=== PATIENT | female | born 1960 | race Caucasian/White ===

== ENCOUNTER 2016-11-16 01:40 | Observation (INO) | payer BC ==
[~2016-11-16] VITALS: Ht 160 cm; Wt 86.2 kg
[2016-11-16] VITALS (13 sets, daily range): BP systolic 121–208; BP diastolic 51–110
--- NOTE | ~2016-11-16 | 2DMMODE ---
[facility] [address] [place] [address] 2 D/M-MODE ECHOCARDIOGRAM Name: MARKUS MORRIS DEBRA Room #: 203-P ADM IN M.R.#: [id number] Admission: 11/16/16 Attend Phys: Clarice Perdomo Discharge: Date of : 60 Date of Service: 11/16/16 1536 Report #: [id number] THIS REPORT FOR: //name// APPROVED REPORT Study performed: 11/16/2016 13:21:52 EXAM: Comprehensive 2D, Doppler, and color-flow Echocardiogram Patient Location: Echo lab Status: routine BSA: 1.84 HR: 75 bpm BP: 172/86 mmHg Other Information Study Quality: Good Indications CVA/TIA Hx HTN, DM, HLP 2D Dimensions RVDd: 28.74 mm LVEF(%): 73.71 (>50%) IVSd: 14.53 (7-11mm) LVOT Diam: 20.19 (18-24mm) LVDd: 39.89 mm PWd: 11.48 (7-11mm) Ascending Ao: 31.62 (22-36mm) LVDs: 23.08 (25-40mm) Aortic Root: 28.31 mm Coyne's LVEF: 73.71 % Volumes Left Atrial Volume (Systole) Single Plane 4CH: 47.64 mL Single Plane 2CH: 43.53 mL LA ESV Index: 27.00 mL/m2 Aortic Valve AoV Peak Enio.: 1.58 m/s AO Peak Gr.: 9.92 mmHg LVOT Max P.56 mmHg LVOT Max V: 1.07 m/s DEAN Vmax: 2.17 cm2 Mitral Valve E/A Ratio: 0.8 MV Decel. Time: 298.[address] [facility] [place] [address] 2 D/M-MODE ECHOCARDIOGRAM Name: MARKUS MORRIS [place] Room #: 203-P ADM IN M.R.#: [id number] Admission: 11/16/16 Attend Phys: Clarice Perdomo Discharge: Date of : 60 Date of Service: 11/16/16 1536 Report #: [id number] MV E Max Enio.: 0.71 m/s MV A Enio.: 0.87 m/s MV PHT: 86.64 ms IVRT: 87.66 ms Pulmonary Valve PV Peak Enio.: 0.97 m/s PV Peak Gr.: 3.79 mmHg Pulmonary Vein P Vein S: 0.61 m/s P Vein A: 0.29 m/s P Vein D: 0.32 m/s P Vein A Dur.: 113.0 msec P Vein S/D Ratio: 1.91 Tricuspid Valve TR Peak Enio.: 2.41 m/s RAP Estimate: 5.00 mmHg TR Peak Gr.: 23.31 mmHg PA Pressure: 28.00 mmHg Left Ventricle The left ventricle is normal size. Borderline LVH is present. The left ventricular systolic function is normal. The left ventricular ejection fraction is within the normal range. LVEF is 65%. Grade I - abnormal relaxation pattern. Right Ventricle The right ventricle is normal size. The right ventricular systolic function is normal. Atria The left atrium size is normal. Injection of bubbles documented no interatrial shunt. The right atrium size is normal. Aortic Valve Aortic valve leaflets are thickened. No aortic regurgitation is present. There is no aortic valvular stenosis. Mitral Valve The mitral valve is normal in structure. There is no mitral valve regurgitation noted. No evidence of mitral valve stenosis. Tricuspid Valve The tricuspid valve is normal in structure. There is trace tricuspid regurgitation. The right atrial pressure is estimated at 5 mmHg. There is no pulmonary hypertension with an estimated PAP of [address] [facility] [address] [place] [address] 2 D/M-MODE ECHOCARDIOGRAM Name: MARKUS MORRIS DEBRA Room #: 203-P ADM IN M.R.#: [id number] Admission: 11/16/16 Attend Phys: Clarice Perdomo Discharge: Date of : 60 Date of Service: 11/16/16 1536 Report #: [id number] Pulmonic Valve The pulmonary valve is normal in structure. Trace pulmonic regurgitation. Great Vessels The aortic root is normal in size. The ascending aorta is normal in size. IVC is normal in size and collapses >50% with inspiration. Pericardium There is no pericardial effusion. <Conclusion> The left ventricle is normal size. The left ventricular systolic function is normal. Grade I - abnormal relaxation pattern. The right ventricle is normal size. The left atrium size is normal. The right atrium size is normal. Injection of bubbles documented no interatrial shunt. There is no aortic valvular stenosis. The mitral valve is normal in structure. <ELECTRONICALLY SIGNED> By: Thad Hawkins MD 11/16/16 1536 1536 1536 Thad Hawkins MD /INF
--- NOTE | ~2016-11-16 | EKG ---
[place] [address] [facility] [place] [address] ELECTROCARDIOGRAM REPORT Name: MARKUS MORRIS Room #: 247-P [facility]#: [id number] Admission: 11/16/16 Attend Phys: Derek Grimm MD Discharge: Date of : 60 Report #: [id number] THIS REPORT FOR: //name// [facility] ED Test Date: 2016-11-16 Test Time: 01:45:44 Pat Name: MARKUS MORRIS Department: Room: [facility] Gender: F [employer]ographic Process Worker: RERE : 1960 Requested By: Aguila Hassan Order Number: [id number] MD: Jose Oliver Measurements Intervals [place] Rate: 66 P: 19 WY: 187 QRS: 13 QRSD: 90 T: 40 QT: 401 QTc: 421 Interpretive Statements Sinus rhythm Normal tracing No previous ECG available for comparison Electronically Signed On 11-16-2016 10:53:24 CDT by Jose Oliver [email or web address] <ELECTRONICALLY SIGNED> By: Jose Oliver MD, [facility] 11/16/16 1053 0145 0145 Jose Oliver MD, FACC /EPI
[~2016-11-16 01:40] MED LIST: AMARYL4 MG; INVOKANA300 MG PO; LISINOPRIL5 MG PO; LOPERAMIDE 2 MG2 M1 PO; PROGESTERONE100 MG TOP; ZOFRAN4 MG PO
[2016-11-16] MEDS ORDERED: TRULICITY0.75 MG/0. SQ (01:52)
[2016-11-16 02:36] LABS: HEMATOCRIT 44.7 % (37.0-47.0); HEMOGLOBIN 14.9 gm/dL (12.0-15.0); MANUAL DIFF NO; MCV 92.2 fL (80.0-100.0); RBC 4.85 mil/uL (4.20-5.00); WBC 8.3 thou/uL (4.0-11.0)
[2016-11-16 02:37] LABS: URINE COLOR YELLOW; URINE SPECIFIC GRAVITY 1.015 (1.003-1.035)
[2016-11-16 02:37] LABS: ABSOLUTE NEUTROPHILS 4.3 thou/uL (1.4-8.2); BASOPHILS 0.7 % (0.0-2.0); EOSINOPHILS 2.1 % (0.0-3.0); LYMPHOCYTES 39.5 % (24.0-44.0); MCH 30.8 pg (26.0-34.0); MCHC 33.4 % (28.0-37.0); MONOCYTES 6.6 % (1.0-8.0); PLATELET COUNT 183 thou/uL (150-400); POLYS 51.1 % (36.0-66.0)
[2016-11-16 02:38] LABS: URINE BILIRUBIN NEGATIVE (Negative); URINE BLOOD NEGATIVE (Negative); URINE GLUCOSE-RANDOM* 3+ (Negative); URINE KETONES TRACE (Negative); URINE NITRITE NEGATIVE (Negative); URINE PROTEIN (DIPSTICK) NEGATIVE (Negative); URINE UROBILINOGEN 0.2 E.U./dl (0.2-1.0)
[2016-11-16 02:43] LABS: ALBUMIN 4.3 g/dL (3.4-5.0); ALKALINE PHOSPHATASE 64 U/L (46-116); ANION GAP 10 mmol/L (7-16); BUN 22 mg/dL (7-18); CALCIUM 9.6 mg/dL (8.5-10.1); CHLORIDE 103 mmol/L (98-107); CO2 28 mmol/L (21-32); CREATININE 0.9 mg/dL (0.6-1.0); GLUCOSE 148 mg/dL (74-106); MAGNESIUM 2.3 mg/dL (1.8-2.4); POTASSIUM 4.1 mmol/L (3.5-5.1); SGOT 16 U/L (15-37); SGPT 24 U/L (30-65); SODIUM 141 mmol/L (136-145); TOTAL BILIRUBIN 0.5 mg/dL (<0.1-1.0); TOTAL PROTEIN 7.7 g/dL (6.4-8.2); TROPONIN-I < 0.04 ng/mL (<0.04-0.07)
[2016-11-16 02:43] LABS: AMP/METHAMP Negative (Negative); BARBITURATES Negative (Negative); BENZODIAZEPINES Negative (Negative); COCAINE Negative (Negative); METHADONE Negative (Negative); OPIATES Negative (Negative); PCP Negative (Negative); THC Negative (Negative)
[2016-11-16 02:44] LABS: NT-PRO BRAIN NAT PEPTIDE 37 pg/mL (<300)
[2016-11-16 15:38] LABS: TSH 6.836 uIU/mL (0.358-3.740)
[2016-11-16 16:04] LABS: FOLIC ACID 26.8 ng/mL (8.6-58.9)
[2016-11-17 03:39] LABS: ABSOLUTE NEUTROPHILS 5.1 thou/uL (1.4-8.2); BASOPHILS 0.7 % (0.0-2.0); EOSINOPHILS 3.2 % (0.0-3.0); HEMATOCRIT 40.2 % (37.0-47.0); HEMOGLOBIN 13.6 gm/dL (12.0-15.0); LYMPHOCYTES 31.6 % (24.0-44.0); MCH 31.1 pg (26.0-34.0); MCHC 33.7 g/dL (28.0-37.0); MCV 92.1 fL (80.0-100.0); MONOCYTES 6.6 % (1.0-8.0); PLATELET COUNT 175 thou/uL (150-400); POLYS 57.9 % (36.0-66.0); RBC 4.37 mil/uL (4.20-5.00); RDW 13.2 % (10.5-14.5); WBC 8.8 thou/uL (4.0-11.0)
[2016-11-17 03:52] LABS: MANUAL DIFF NO
[2016-11-17 04:00] VITALS: BP 130/67
[2016-11-17 04:04] LABS: ANION GAP 12 mmol/L (7-16); BUN 18 mg/dL (7-18); CALCIUM 8.9 mg/dL (8.5-10.1); CHLORIDE 103 mmol/L (98-107); CHOLESTEROL 203 mg/dL (<200); CO2 24 mmol/L (21-32); CREATININE 0.7 mg/dL (0.6-1.0); GLUCOSE 121 mg/dL (74-106); HDL CHOLESTEROL 49 mg/dL (>40); LDL CHOLESTEROL 109 mg/dL (<100); MAGNESIUM 1.9 mg/dL (1.8-2.4); POTASSIUM 3.8 mmol/L (3.5-5.1); SODIUM 139 mmol/L (136-145); TC:HDL 4.1 Ratio (Not establshd); TRIGLYCERIDE 229 mg/dL (<150); VLDL 46 mg/dL (<40)
[2016-11-17 04:06] LABS: SERUM ASSESSMENT Clear
[2016-11-17 05:08] LABS: GLYCOHEMOGLOBIN (HGB A1C) 6.5 % (4.8-5.6)
[2016-11-17 07:53] VITALS: BP 143/79
[2016-11-17] MEDS ORDERED: ECOTRIN325 MG PO (09:19)
[2016-11-17] MEDS ORDERED: LISINOPRIL5 MG PO (09:19)
[2016-11-17] MEDS ORDERED: LIPITOR 20 MG T20 M1 PO (09:23)
[2016-11-17 10:04] VITALS: BP 143/79
[2016-11-17 10:51] VITALS: BP 143/79
[2016-11-18 13:10] LABS: ALPHA TOCOPHEROL 20.5 mg/L (5.3-16.8)
== END 2016-11-17 10:45 | disposition home or self-care (01) ==
LOC: ER 01:40 → EROBS 04:49 → ICU 04:49 → 2N 04:49 → ICU 06:11 → 2N 14:46
PROVIDERS: Emergency Medicine; Internal Medicine; Nurse Practitioner; Psychiatry & Neurology Neurology
DX: I10 Essential (primary) hypertension (principal); R42 Dizziness and giddiness; R20.9 Unspecified disturbances of skin sensation; E78.5 Hyperlipidemia, unspecified; E11.9 Type 2 diabetes mellitus without complications; E87.6 Hypokalemia; E87.1 Hypo-osmolality and hyponatremia; E86.0 Dehydration; R19.7 Diarrhea, unspecified